=== PATIENT | female | born 1970 | race Caucasian/White ===

== ENCOUNTER 2019-08-31 09:26 | Outpatient (CLI) | payer OTHER, SELFPAY ==
--- NOTE | 2019-08-31 09:40 | XR_ITS ---
WS: [id number] CHEST 2 VIEWS HISTORY: PLEURODYNIA COMPARISON: None available. Lungs: Vague area of increased opacification at the RIGHT lung base. May be an area of pneumonitis or developing pneumonia or neoplasm. Otherwise lungs are clear. Cardiac size: Normal. Mediastinum/Aorta: Normal mediastinum. Bones: Slight increase in thoracic kyphosis. Mild anterior wedging of T7. XR/XR chest 2V* [id number] IMPRESSION: 1. Very subtle area of increased opacification at the RIGHT lung base. May be an area of scarring or atelectasis or pneumonitis or developing pneumonia. [facility] mmend follow-up chest radiograph in 4-6 weeks after treatment. 2. No mediastinal widening.
== END 2019-08-31 09:27 | disposition home or self-care (01) ==
PROVIDERS: PCP Nurse Practitioner Family; Visit Provider Nurse Practitioner Family
DX: R07.81 Pleurodynia (principal)
CPT/HCPCS: 71046

== ENCOUNTER 2020-08-12 10:39 | Outpatient (CLI) | payer OTHER, SELFPAY ==
--- NOTE | 2020-08-12 10:49 | XR_ITS ---
WS: [id number] RIGHT HIP, upright. HISTORY: HIP JOINT PAIN, RIGHT COMPARISON: None available. Right hip: No acute fracture or dislocation. Very minimal osteophytic ridging around the acetabulum. Minimal narrowing of the joint space. No necrosis identified. XR/XR hip RT 2-3V wo/w pel* [id number] IMPRESSION: 1. Minimal narrowing of the RIGHT hip joint. 2. No fracture.
== END 2020-08-12 10:40 | disposition home or self-care (01) ==
PROVIDERS: PCP Nurse Practitioner Family; Visit Provider Nurse Practitioner Family
DX: M25.551 Pain in right hip (principal)
CPT/HCPCS: 73502